=== PATIENT | female | born 1950 | race Caucasian/White ===

== ENCOUNTER 2018-08-19 12:26 | Emergency (ER) | payer MEDICARE ==
[2018-08-19 13:35] VITALS: BP 137/84
--- NOTE | 2018-08-19 14:01 | UC ---
Respiratory Complaint HPI - HPI Summary HPI Summary: cough x 3 days cough is dry , constant, harsh, worse at night, mild nasal congest, pnd, no sore throat no fever, no chills, no wheezing or sob + chest pressure , heat burn - History of Current Complaint Chief Complaint: UCRespiratory Stated Complaint: COUGH, CHEST CONGESTION Time Seen by Provider: 08/19/18 13:16 Hx Obtained From: Patient Onset/Duration: Gradual Onset, Lasting Days - 3, Still Present Timing: Constant Severity Initially: Moderate Severity Currently: Moderate Pain Intensity: 0 Pain Scale Used: 0-10 Numeric Character: Cough: Nonproductive Aggravating Factors: Exertion, Deep Breaths Alleviating Factors: Nothing Associated Signs And Symptoms: Positive: Dyspnea, URI, Nasal Congestion. Negative: Fever, Chills, Pleuritic Chest Pain, Wheezing, Hemoptysis, Dizziness, Calf Pain, Calf Swelling, Edema, Hoarseness, Sinus Discomfort - Allergies/Home Medications Allergies/Adverse Reactions: Allergies Allergy/AdvReac Type Severity Reaction Status Date / Time codeine AdvReac Headache Verified 08/19/18 13:36 environmental Allergy Congestion Uncoded 08/19/18 13:36 Home Medications: Home Medications Albuterol inh POWDER (NF) [Proair Respiclick] 2 puff INH BID PRN 08/19/18 [ History Confirmed 08/19/18] Felodipine (NF) [Plendil (NF)] 10 mg PO DAILY 08/19/18 [History Confirmed ] Fluticasone NASAL SPRAY 50MCG* [Flonase NASAL SPRAY 50MCG*] 2 spray BOTH NARES DAILY 08/19/18 [History Confirmed 08/19/18] Hydrochlorothiazide TAB* [Hydrodiuril TAB*] 25 mg PO DAILY 08/19/18 [History Confirmed 08/19/18] Latanoprost 0.005%* [Xalatan 0.005%*] 1 drop BOTH EYES QPM 08/19/18 [History Confirmed 08/19/18] Multivitamin [Once Daily] 1 each PO DAILY 08/19/18 [History Confirmed 08/19/18] [place]-3/Dha/Epa/Fish Oil [Fish Oil 1,000 mg Softgel] 1,000 mg PO DAILY 08/19/18 [History Confirmed 08/19/18] Omeprazole 40 mg PO DAILY 08/19/18 [History Confirmed 08/19/18] Vitamins E,D3,B12 1 dose PO SEE INSTRUCTIONS 08/19/18 [History Confirmed ] PMH/Surg Hx/FS Hx/Imm Hx - Additional Past Medical History Additional PMH: glaucoma, GERD, b/l wrist fxs, benign breast bxs Respiratory History: COPD - Surgical History Surgical History: Yes Surgery Procedure, Year, and Place: B/l cataracts, appy after , tonsils ; iguinal hernias as infant - Family History Known Family History: Negative: Diabetes - Social History Alcohol Use: Occasionally Substance Use Type: None Smoking Status (MU): Former Smoker Review of Systems All Other Systems Reviewed And Are Negative: Yes Constitutional: Positive: Negative Skin: Positive: Negative Eyes: Positive: Negative ENT: Positive: Negative Respiratory: Positive: Negative Is Patient Immunocompromised?: No Physical Exam Triage Information Reviewed: Yes Appearance: Well-Appearing, No Pain Distress, Well-Nourished Vital Signs: Initial Vital Signs Temp 99 F 08/19/18 13:08 Pulse 85 08/19/18 13:08 Resp 22 08/19/18 13:08 BP 137/84 08/19/18 13:08 Pulse Ox 95 08/19/18 13:08 Vital Signs Reviewed: Yes Eye Exam: Normal Eyes: Positive: Conjunctiva Clear ENT: Positive: Normal ENT inspection, Hearing grossly normal, Pharynx normal Respiratory Exam: Normal Respiratory: Positive: Chest non-tender, Lungs clear, Normal breath sounds Cardiovascular: Positive: RRR, No Murmur, Pulses Normal Respiratory Course/Dx - Differential Dx/Diagnosis Provider Diagnosis: Viral bronchitis Discharge - Sign-Out/Discharge Documenting (check all that apply): Patient Departure All imaging exams completed and their final reports reviewed: No Studies - Discharge Plan Condition: Stable Disposition: HOME Patient Education Materials: Acute Bronchitis (ED) Referrals: Sherif Tracy MD [Primary Care Provider] - 7 Days Additional Instructions: viral Bronchitis no need for antibiotic - Billing Disposition and Condition Condition: STABLE Disposition: Home
== END 2018-08-19 13:56 | disposition home or self-care (01) ==
LOC: UCCORT 12:26
DX: J20.8 Acute bronchitis due to other specified organisms (principal); Z87.891 Personal history of nicotine dependence; Z79.899 Other long term (current) drug therapy
CPT/HCPCS: 93005; 99211; G0463